=== PATIENT | female | born 1950 | race Caucasian/White ===

== ENCOUNTER 2020-04-18 10:52 | Outpatient (RCR) | payer MEDICARE, MEDICAID, SELFPAY ==
--- NOTE | 2020-04-18 11:49 | HP.PTEVAL_ITS ---
Patient's Visit Information LYNDA GELLER is a 69 year old F referred to Physical Therapy by Dr. Nirmal Baca DO with a diagnosis of Left Hip and Right Knee OA. Date of Evaluation: 04/18/20 Physical Therapist: Nichole Kim DPT - Visit Plan Frequency: 2x /Week Duration: 4 Weeks Plan: Aquatic Therapy- focus on LE and core strength/stabilization - Subjective Patient reports that she has left hip twinges and weakness when she goes upst airs- and she has right knee OA on the medial side with a small part of her knee cap worn away- she fell on it a few years ago and it hurt a lot then went away. The knee pain started about a year ago- medial side- no radiating pain. Describes the pain as sharp. Later afternoon or evening Eases: sitting with leg propped up straight. Agg: getting up from sitting for to long. Getting moving helps it Worst 5/10. Best: 0/10. No numbness but does have mild tingling in the evening. Very active- always moving- works at [employer] lots of standing and moving can sit on a stool as needed. No known pattern. Sleep: not disturbed. Left hip has been bothering her since very recent- had an x-ray which was mild to moderate OA. She feels probably from compensating for the right side- does lots of stairs at home- required to go up/down at her apt. No known injury- started when her knee was worse. Agg: going up/down stairs more weakness Worst: 5/10 Best: 0/10 as soon as she stops doing the stairs. Reports this pain is more dull and achy. No radiating pain- located in the gluts on the outside. No N/T in the left LE. Has no history of back problems or severe injuries. Sleep: not disturbed- right side. Lives along- drives and is fully I with all ADLs. PMHx: HTN, DM, Meds: Metformin, Atenolol, Meloxicam. - Objective Posture: FH, RS- can correct with verbal cues but does not maintain. Gait: slightly antalgic with right toes turned out to the side and decreased stance on the right LE- mild hip drop into the left. HR/TR: able without discomfort. Stairs:asc/desc 8 non recip. SLS: Left: 1 sec and feels weaker Right: 3 seconds. Palpation: tender along left great troch and right medial knee joint line. ROM: WFL in all planes no pain at end ranges. Sensation: WNl. Strength: Core: fair minus, Hip: 4-/5 throughout bilateral Knee: 5/5, Ankle: 5/5. Flex: HS: moderate, Gastroc: moderate. Special Test; Scour: positive, LLD: negative, VIKRAM: positive - Goals Goal 1:: Patient will be I with HEP and progression Goal Time Frame: 4-6 Weeks Goal 2:: Patient will asc/desc 8 stairs recip Goal Time Frame: 4-6 Weeks Goal 3:: Patient will ambulate >300 feet with a normalized gait pattern Goal Time Frame: 4-6 Weeks Goal 4:: Patient will report no pain for 1 week Goal Time Frame: 4-6 Weeks - Rehabilitation Potential Physical Therapy Diagnosis: Patient presents with hypomobility- she has decreased ROM,strength, flex and muscular endurance leading to abnormal gait and decreased ability to perform painfree ADL's. Rehabilitation Potential: Good - Anticipated Interventions Patient/Client Instruction: Educate patient on: Benefits of Fitness Program Therapeutic Exercise to Include: Strength training, Endurance training, Balance training, Agility training, Body mechanics, Postural training, Flexibilty training, Gait and locomotor training, Neuromotor development, In an aquatic setting, Passive ROM, Active ROM, Dynamic Lumbar Stabilization, Scapular Strength/Stabilization For the Purpose of:: To improve muscle performance and motor function Thank you for the opportunity to evaluate your patient. For Medicare and Medicare HMO plans, please review the plan of care and approve it. It will need to be FAXED BACK to us at [phone] for Medicare purposes. For Medicare only, by signing this I certify the plan of care. Please let me know if there are questions or concerns regarding this plan of care. Physician Signature: Date:
--- NOTE | 2020-05-16 10:06 | HP.PT.NRP ---
LYNDA GELLER was seen in my office for initial evaluation on 04/18/20. The following Plan of Care was established for this patient: Initial Frequency: 2x /Week Initial Duration: 4 Weeks Patient/Client Instruction: Educate patient on: Benefits of Fitness Program Therapeutic Exercise to Include: Strength training, Endurance training, Balance training, Agility training, Body mechanics, Postural training, Flexibilty training, Gait and locomotor training, Neuromotor development, In an aquatic setting, Passive ROM, Active ROM, Dynamic Lumbar Stabilization, Scapular Strength/Stabilization For the Purpose of:: To improve muscle performance and motor function This patient was last seen in our office . Pertinent comments regarding their Physical therapy will appear below: Patient attended physical therapy initial evaluation but has not returned for follow up treatment. Discharge and return to MD for further evaluation as needed. At this point I will be discontinuing this patient from physical therapy. I would be happy to see this patient again in the future if found appropriate by the physician. Thank you! Nichole Kim DPT
== END 2020-04-18 19:00 | disposition home or self-care (01) ==
LOC: PT 10:52
PROVIDERS: PCP Student in an Organized Health Care Education/Training Program; Referring Provider Student in an Organized Health Care Education/Training Program; Visit Provider Student in an Organized Health Care Education/Training Program
DX: M25.561 Pain in right knee (principal); G89.29 Other chronic pain; M25.552 Pain in left hip
CPT/HCPCS: 97162

== ENCOUNTER 2020-07-31 09:49 | Outpatient (RCR) | payer MEDICARE, MEDICAID, SELFPAY | END 2020-07-31 23:59 | LOC: IMMUN 09:49 | PROVIDERS: PCP Student in an Organized Health Care Education/Training Program; Visit Provider Family Medicine | DX: Z23 Encounter for immunization (principal) | CPT/HCPCS: 0011A; 0012A ==

== ENCOUNTER 2024-08-06 03:24 | Emergency (ER) | payer MEDICARE, MEDICAID, SELFPAY ==
[2024-08-06 03:26] VITALS: BP 163/77; PULSE 95; RESP 18; TEMP 36.6; O2SAT 95; BMI 31.1
[2024-08-06 04:10] LABS: Bedside Glucose 189 mg/dL (74-106)
[2024-08-06 04:37] LABS: Color, Urine Yellow (Yellow); Glucose, Dipstick Normal (Normal); Ketone-Dipstick Negative (Negative); Leukocyte Esterase-Dipstick 500 /ul (Negative); Mucous, Urine 0 SEEN /hpf (<or=2+); Nitrite-Dipstick Negative (Negative); Occult Blood-Urine 150 /ul (Negative); Protein-Dipstick 100 mg/dl (Negative); Specific Gravity, Urine 1.015 (1.002-1.030); Urine Bilirubin Dipstick Negative (Negative); Urine Clarity Cloudy (Clear); Urine Urobilinogen Normal (Normal); White Blood Cells 0 SEEN /hpf (0-5)
--- NOTE | 2024-08-06 04:54 | EDS_ITS ---
HPI HPI - Female History of Present Illness Chief Complaint: Complaint Informant: patient Narrative Narrative: 73-year-old female with 3 days of urinary frequency and burning dysuria. No hematuria. No abdominal pain. No back pain, no fevers chills vomiting. She is a diabetic, she was wondering if maybe it was her blood sugar or an infection. She states she started taking [id number] Azo and it has been helping the burning. She denies any polydipsia. [facility] Medical History (Updated 08/06/24 @ 04:[address] Cleve Francis MD) Hypertension Type 2 diabetes mellitus Home Medications ?Medication ?Instructions ?Recorded ?Last Taken ?Type aspirin 81 mg tablet,delayed 81 mg PO DAILY 01/21/21 U nknown History release (Adult Low Dose Aspirin) atenolol 50 mg-chlorthalidone 25 tablet PO 01/21/21 Un known History mg tablet calcium carbonate (Calcium 500) 500 mg PO DAILY Unknown History cholecalciferol (vitamin D3) 10 10 mcg PO DAILY Unknown History mcg (400 unit) capsule metformin 1,000 mg tablet tablet PO 01/21/21 Unknown H istory multivitamin 1 tab PO DAILY 01/21/21 Unkn own History omega-3 fatty acids 1,000 mg 1,000 mg PO DAILY 1 Unknown History capsule (Fish Oil Concentrate) nitrofurantoin 100 mg PO Q12 #10 CAPSULES 0 08/06/24 Unknown Rx monohydrate/macrocrystals 100 mg capsule Allergy/AdvReac Type Severity Reaction Status Date / Time lisinopril Allergy Nausea/Vom/ Verified 08/06/24 03:30 Diarrhea oxycodone AdvReac Intermediate Upset Verified 08/06/24 03:30 Stomach ciprofloxacin (From Cipro) AdvReac Mild Rash Verified 08/06/24 03:30 erythromycin base AdvReac Mild Upset Verified 08/06/24 03:30 Stomach Social History Smoking Status: Never smoker alcohol intake: never ROS ROS ED Constitutional Constitutional ED: Denies chills or fever(s) Eyes Eyes: Denies change in vision or diplopia ENT ENT ED: Denies rhinorrhea or sore throat Cardiovascular Cardiovascular: Denies chest pain or palpitations Respiratory/Chest Respiratory/Chest: Denies cough or dyspnea Gastrointestinal Gastrointestinal: Denies abdominal pain, diarrhea, nausea or vomiting Genitourinary Genitourinary ED: Reports dysuria and urinary frequency; Denies hematuria Musculoskeletal Musculoskeletal: Denies back pain or neck pain Integumentary Denies abscess or rash Neurologic Neurologic: Denies headache(s), paresthesias or weakness Psychiatric Psychiatric: Denies anxiety or suicidal thoughts EXAM Physical Exam Const Vital Signs: 08/06/24 03:26 Temperature 97.9 F Temperature Source Oral Pulse Rate 95 Respiratory Rate 18 Blood Pressure 163/77 H Blood Pressure Mean 105 Pulse Ox 95 Oxygen Delivery Method Room Air Positive well nourished and well developed Constitutional Narrative: Well-appearing pleasant no distress General Appearance ED: well developed and NAD HEENT Reports moist mucous membranes normocephalic and atraumatic Eyes PERRL and EOMs intact bilaterally Neck full ROM and supple Resp normal respiratory effort and clear to auscultation bilaterally Cardio regular rate, regular rhythm and no murmurs GI non-tender and non-distended Auscultation: normoactive bowel sounds Palpation: soft Back/Spine no CVA tenderness General Back: other FROM Extremity normal to inspection General Extremety ED: Negative for edema, pulses abnormal or tenderness General Extremity: Negative for edema or pulses abnormal Neuro oriented x3, CN's II-XII intact bilaterally and no sensory deficits noted Sensorium / Orientation: awake and alert Motor Exam: strength 5/5 throughout Skin no rashes or lesions noted and no wounds MDM MDM MDM Narrative Medical decision making narrative: Her blood sugar is 189, she states this is not much higher than it usually is. Her urinalysis is consistent with infection. Sent for culture, we will place her on 5 days of Macrobid, and advised outpatient follow-up if not improved. She is comfortable with that plan. Lab Data Attestation: I reviewed the patient's lab results. Labs: Laboratory Results - last 24 hr 08/06/24 08/06/24 03:51 04:31 Urine Color Yellow Urine Clarity Cloudy Urine pH 6.0 Ur Specific [place] 1.015 Urine Protein 100 H Urine Glucose (UA) Normal Urine Ketones Negative Urine Occult Blood 150 H Urine Nitrite Negative Urine Bilirubin Negative Urine Urobilinogen Normal Ur Leukocyte Esterase 500 H Urine RBC 5-10 SEEN Urine WBC 0 SEEN Ur Squamous Epith Cells 50-100 SEEN Urine Bacteria 3+ Urine Mucus 0 SEEN POC Glucose 189 H Discharge Plan Triage Chief Complaint: Complaint ED Provider: Cleve Francis Dx/Rx/DC Orders Clinical Impression: Acute cystitis without hematuria Instructions: ED UTIs Women Prescriptions: New nitrofurantoin monohyd/m-cryst 100 mg capsule 100 mg PO Q12 Qty: 10 0RF No Action atenolol-chlorthalidone 50-25 mg tablet PO metformin 1,000 mg tablet PO calcium carbonate [Calcium 500] 500 mg calcium (1,250 mg) tablet 500 mg PO DAILY omega-3 fatty acids [Fish Oil Concentrate] 1,000 mg capsule 1,000 mg PO DAILY multivitamin Tablet 1 tab PO DAILY aspirin [Adult Low Dose Aspirin] 81 mg tablet,delayed release (DR/EC) 81 mg PO DAILY cholecalciferol (vitamin D3) 10 mcg (400 unit) capsule 10 mcg PO DAILY Primary Care Provider: Nirmal Baca Referrals: Nirmal Baca DO [Primary Care Provider] - 3-5 Days if not improving Print Language: Indonesian Disposition Disposition: Home, Self Care Discharge Date/Time: 08/06/24 05:15
[2024-08-06 05:03] LABS: Red Blood Cells-Urine 5-10 SEEN /hpf (0-5); Squamous Epithelial Cells - UA 50-100 SEEN /hpf (5-10)
[2024-08-06 05:04] LABS: Bacteria 3+ /hpf (None Seen)
[2024-08-06] MEDS: Nitrofurantoin Macrocrystals 100 MG Capsule PO (05:12)
== END 2024-08-06 05:15 | disposition home or self-care (01) ==
PROVIDERS: Emergency Provider Emergency Medicine; PCP Student in an Organized Health Care Education/Training Program; Visit Provider Emergency Medicine
DX: N30.00 Acute cystitis without hematuria (principal); E11.9 Type 2 diabetes mellitus without complications; I10 Essential (primary) hypertension; Z79.82 Long term (current) use of aspirin; Z79.899 Other long term (current) drug therapy; Z79.84 Long term (current) use of oral hypoglycemic drugs
CPT/HCPCS: 81001; 82962; 87077; 87086; 87088; 87186; 99282